=== PATIENT | male | born 1965 | race African-American/Black ===

== ENCOUNTER → 2024-07-17 | Day surgery (SDC) | payer BC ==
[~2024-07-17] MED LIST: ACETAMINOPHEN 1000 MG/100 ML 100 ML IV ONE; AMLODIPINE BESYL5 MG PO; FENTANYL CITRATE/PF 100MCG/2 ML INJ ONE; KETOROLAC TROMETHAMINE 30 MG/ML VIAL ONE; KOMBIGLYZE; LIDOCAINE HCL 2% LOCAL INJ 5 ML SDV VIAL INJ ONE; LISINOPRIL-HCT1 EAC2 PO; LISINOPRIL/HCTZ; MIDAZOLAM HCL 2 MG/2 ML VIAL ONE; MONTELUKAST SOD10 MG PO; ONDANSETRON HCL INJ 2MG/ML 2ML 2 MG/ML VIAL ONE; PROPOFOL IV EMULSION 10 MG/ML 20 ML VIAL ONE; RYBELSUS7 MG PO; SIMVASTATIN40 MG PO; SYNJARDY 12.5-1 EACH PO; VENTOLIN HFA18 GM INH
[2024-07-17 06:56] LABS: BASOPHILS % 0.6 % (0.0-1.0); EOSINOPHILS # (AUTO) 0.1 (0.0-0.4); EOSINOPHILS % 2.1 % (0.0-6.0); HEMOGLOBIN 15.7 g/dL (14.0-18.0); LYMPHOCYTES # (AUTO) 1.9 (1.0-3.2); LYMPHOCYTES % 37.1 % (18.0-39.1); MEAN CORPUSCULAR HEMOGLOBIN 27.4 pg (28-32); MEAN CORPUSCULAR HGB CONC 32.7 g/dL (31-35); MEAN CORPUSCULAR VOLUME 83.8 fL (81-99); MONOCYTES # (AUTO) 0.5 (0.2-0.8); MONOCYTES % 9.9 % (4.4-11.3); NEUTROPHILS # (AUTO) 2.6 (2.1-6.9); NEUTROPHILS % 50.3 % (38.7-80.0); PLATELET COUNT 210 x10e3/uL (140-360); RED BLOOD COUNT 5.73 x10e6/uL (4.3-5.7); WHITE BLOOD COUNT 5.23 x10e3/uL (4.8-10.8)
[2024-07-17 07:10] LABS: ANION GAP 12.8 mmol/L (8-16); CALCIUM 9.8 mg/dL (8.4-10.2); CREATININE, SERUM 1.27 mg/dL (0.72-1.25); POTASSIUM 3.8 mmol/L (3.5-5.1)
[2024-07-17 10:34] VITALS: TEMP 98.5
[2024-07-17 12:10] VITALS: BP 147/74; PULSE 75; RESP 18; O2SAT 100
== END | disposition home or self-care (01) ==
LOC: OR 06:03
PROVIDERS: ATTEND Surgery
DX: K40.90 Unilateral inguinal hernia, without obstruction or gangrene, not specified as recurrent (principal); D17.6 Benign lipomatous neoplasm of spermatic cord; E11.9 Type 2 diabetes mellitus without complications; I10 Essential (primary) hypertension; E78.5 Hyperlipidemia, unspecified; J45.909 Unspecified asthma, uncomplicated; G89.29 Other chronic pain; F41.9 Anxiety disorder, unspecified; Z79.84 Long term (current) use of oral hypoglycemic drugs; Z79.899 Other long term (current) drug therapy
CPT/HCPCS: 36415; 49505; 80048; 82948; 85025; 93005; C1781; J0131; J1885; J2003; J2250; J2405; J2704; J3010